=== PATIENT | female | born 1945 | race Caucasian/White ===

== ENCOUNTER 2021-05-16 18:48 | Emergency (ER) | payer BC, OTHER ==
[~2021-05-16] VITALS: Ht 158.8 cm; Wt 89.5 kg
[~2021-05-16 18:48] MED LIST: ALBU-118 IH; AMLO10TA PO; ASPI-1822 PO; LOSA100T51 PO; NITR0.4T2 SL; PSE1TAB69 PO; TEMA15CA24 PO
[2021-05-16 18:55] VITALS: BP 147/68
--- NOTE | 2021-05-16 19:05 | NUR ---
pt ambulated to bed 11
--- NOTE | 2021-05-16 19:14 | NUR ---
PT BIB SELF FOR C/O LEFT HIP PAIN X 5 DAYS. PAIN IS RATED 8/10 AND PT STATES THE PAIN STARTS IN HER LEFT HIP AND TRAVELS DOWN TO HER LEFT KNEE. PT REPORTS SHE IS ABLE TO AMBULATE, BUT THE PAIN INCREASES AT NIGHT WHEN SHE IS LYING DOWN SLEEPING. PT REPORTS TAKING NORCO AND IBUPROFEN FOR PAIN WITH MILD RELIEF. CMS INTACT. CAP REFILL < 3 SECONDS. SEE COMPLETE ASSESSMENT FOR FURTHER DETAILS. MED HX: HIGH CHOLESTEROL, HTN ALLERGIES: NKA
--- NOTE | 2021-05-16 19:46 | NUR ---
ERMD AT BEDSIDE.
[2021-05-16] MEDS ORDERED: KETOROLAC 30 MG/ML VIAL IM ONE (19:55)
--- NOTE | 2021-05-16 20:02 | NUR ---
PT PLACED IN GOWN FOR XRAY.
--- NOTE | 2021-05-16 20:16 | NUR ---
XRAY AT BEDSIDE.
--- NOTE | 2021-05-16 20:29 | NUR ---
PT RETURNED FROM XRAY VIA W.C.
[2021-05-16] MEDS ORDERED: ACET-10509 PO (21:08)
[2021-05-16] MEDS ORDERED: NAPR-54 PO (21:08)
--- NOTE | 2021-05-16 21:13 | NUR ---
ERMD AT BEDSIDE EXPLAINING TEST RESULTS.
[2021-05-16 21:21] VITALS: BP 132/50
--- NOTE | 2021-05-16 21:21 | NUR ---
Patient discharged with v/s stable. Written and verbal after care instructions given and explained. Patient alert, oriented and verbalized understanding of instructions. Ambulatory with steady gait. All questions addressed prior to discharge. ID band removed. Patient advised to follow up with PMD. Rx of TYLENOL EXTRA STRENGTH AND NAPROSYN given. Patient educated on indication of medication including possible reaction and side effects. Opportunity to ask questions provided and answered.
== END 2021-05-16 21:20 | disposition home or self-care (01) ==
LOC: MED 18:48
DX: M13.852 Other specified arthritis, left hip (principal); M54.30 Sciatica, unspecified side; J45.909 Unspecified asthma, uncomplicated; I10 Essential (primary) hypertension; Z90.49 Acquired absence of other specified parts of digestive tract; Z79.899 Other long term (current) drug therapy; Z79.82 Long term (current) use of aspirin
CPT/HCPCS: 73502; 96372; 99283; J1885

== ENCOUNTER 2022-03-25 14:49 | Emergency (ER) | payer BC, OTHER ==
[~2022-03-25] VITALS: Ht 154.9 cm; Wt 79.4 kg
[~2022-03-25 14:49] MED LIST changes: +ACET-10509 PO; +NAPR-54 PO
[2022-03-25 15:04] VITALS: BP 163/71
[2022-03-25] MEDS: KETOROLAC 30 MG/ML VIAL IM ONE (15:46)
[2022-03-25] MEDS ORDERED: NAPR-54 PO (16:40)
== END 2022-03-25 16:50 | disposition home or self-care (01) ==
LOC: MED 14:49
DX: M13.861 Other specified arthritis, right knee (principal); G89.29 Other chronic pain
CPT/HCPCS: 73562; 96372; 99283; J1885

== ENCOUNTER 2023-10-09 10:12 | Emergency (ER) | payer BC, OTHER ==
[~2023-10-09] VITALS: Ht 160 cm; Wt 81.6 kg
[~2023-10-09 10:12] MED LIST changes: -LOSA100T51 PO; +LOSA100T52 PO; -PSE1TAB69 PO; +TRIP1TAB PO
[2023-10-09 10:15] VITALS: BP 118/107; PULSE 61; RESP 20; TEMP 97.1; O2SAT 100
[2023-10-09] MEDS ORDERED: ONDANSETRON 4 MG ODT PO ONE (10:35)
[2023-10-09 10:54] LABS: APPEARANCE,URINE CLEAR (CLEAR); BILIRUBIN,URINE NEGATIVE (NEGATIVE); BLOOD, URINE 2+ (NEGATIVE); COLOR,URINE YELLOW (YELLOW); LEUKOCYTE ESTERASE ,URINE NEGATIVE (NEGATIVE); NITRITE, URINE NEGATIVE (NEGATIVE); PROTEIN,URINE TRACE (NEGATIVE); UGLUCOSE NEGATIVE (NEGATIVE); UROBILINOGEN,URINE 0.2 EU/dL (0.2 - 1)
[2023-10-09 11:19] LABS: BACTERIA,URINE 0-2 /HPF (None Seen); RBC,URINE 0-5 /HPF (0-5); SQUAMOUS EPITHELIAL CELL,UR 20-50 /LPF (0-3 (FEW)); WBC,URINE 0-5 /HPF (0-5)
[2023-10-09 11:20] VITALS: TEMP 97.7
[2023-10-09] MEDS ORDERED: MECLIZINE 25 MG TAB PO ONE (11:20)
[2023-10-09] MEDS ORDERED: diazePAM 5 MG TAB PO ONE (12:05)
[2023-10-09] MEDS ORDERED: DIAZ5TAB6 PO (12:12)
[2023-10-09] MEDS ORDERED: ONDA8TAB87 PO (12:12)
[2023-10-09 12:52] VITALS: BP 122/67; PULSE 74; RESP 17; O2SAT 98
== END 2023-10-09 12:52 | disposition home or self-care (01) ==
LOC: MED 10:12
DX: R42 Dizziness and giddiness (principal); R11.2 Nausea with vomiting, unspecified; J45.909 Unspecified asthma, uncomplicated; I10 Essential (primary) hypertension; Z90.49 Acquired absence of other specified parts of digestive tract; Z79.899 Other long term (current) drug therapy; Z79.1 Long term (current) use of non-steroidal anti-inflammatories (NSAID); Z79.82 Long term (current) use of aspirin
CPT/HCPCS: 70450; 81001; 99284; J8597; Q0162

== ENCOUNTER 2024-07-05 19:29 | Emergency (ER) | payer BC, OTHER ==
[~2024-07-05] VITALS: Ht 160 cm; Wt 104.3 kg
[~2024-07-05 19:29] MED LIST changes: +DIAZ5TAB6 PO; +NAPR-337 PO; -NAPR-54 PO; +ONDA8TAB87 PO
[2024-07-05 19:31] VITALS: BP 169/72; PULSE 111; RESP 20; TEMP 100.1; O2SAT 98
[2024-07-05 20:20] LABS: APPEARANCE,URINE CLEAR (CLEAR); BILIRUBIN,URINE NEGATIVE (NEGATIVE); BLOOD, URINE 1+ (NEGATIVE); COLOR,URINE YELLOW (YELLOW); LEUKOCYTE ESTERASE ,URINE NEGATIVE (NEGATIVE); NITRITE, URINE NEGATIVE (NEGATIVE); PROTEIN,URINE NEGATIVE (NEGATIVE); UGLUCOSE NEGATIVE (NEGATIVE); UROBILINOGEN,URINE 0.2 EU/dL (0.2 - 1)
[2024-07-05 20:35] VITALS: BP 121/80; PULSE 91; RESP 19; TEMP 100.1; O2SAT 98
== END 2024-07-05 20:35 | disposition home or self-care (01) ==
LOC: MED 19:29
DX: R10.9 Unspecified abdominal pain (principal); J45.909 Unspecified asthma, uncomplicated; I10 Essential (primary) hypertension; Z79.1 Long term (current) use of non-steroidal anti-inflammatories (NSAID); Z79.899 Other long term (current) drug therapy
CPT/HCPCS: 81003; 99283